=== PATIENT | female | born 1995 | race Caucasian/White ===

== ENCOUNTER 2017-09-11 07:07 | Emergency (ER) | payer MEDICAID ==
[~2017-09-11] VITALS: Ht 152.4 cm; Wt 77.7 kg
[~2017-09-11 07:07] MED LIST: PREN1CHW7 PO; ZANT150T2 PO
[2017-09-11 07:13] VITALS: BP 122/74; PULSE 108; RESP 18; TEMP 98.4; O2SAT 97
[2017-09-11] MEDS ORDERED: AMPI500C8 PO (07:41)
[2017-09-11] MEDS ORDERED: PENI500T PO (07:47)
--- NOTE | 2017-09-11 07:47 | PD ---
HPI Chief Complaint: Oral / Dental Pain or Problem Time Seen by Provider: 07:38 Travel History International Travel<30 days: No Contact w/Intl Traveler<30days: No Traveled to known affect area: No History of Present Illness HPI This is a 21-year-old female who presents to the emergency department with pain in her left jaw, constant, moderate severity making it difficult for her to sleep for 4 days. She has some bad teeth that she needs pulled with the dentist said because she's they won't do an extraction until after she delivers. She completed 1 course of antibiotics several weeks ago which helped her but her pain has come back. She is 35 weeks . [facility]LY [facility] Past Medical History Diminished Hearing: No ?: : 2 Para: 0 Miscarriage: 1 Social History Alcohol Use: No Tobacco Use: Yes (6 cigs a day) Substance Use: No Allergies-Medications (Allergen,Severity, Reaction): Coded Allergies: No Known Allergies (Unverified Adverse Reaction, Unknown, 09/11/17) Reported Meds & Prescriptions Reported Meds & Active Scripts Active Zantac (Ranitidine HCl) 150 Mg Tab 150 Mg PO BID Vitafol Gummies 3.33-0.333-34.8 mg ( Vit W/ Ferric Phospha) 1 Chw Chw 3 Tab PO DAILY Reported Ampicillin 500 Mg Cap 500 Mg PO QID Review of Systems Except as stated in HPI: all other systems reviewed are Neg Physical Exam Narrative GENERAL: Well-appearing, no acute distress, nontoxic SKIN: Warm and dry. HEAD: Atraumatic. Normocephalic. ENT: No nasal bleeding or discharge. Moist mucous membranes. Dental caries and poor dentition along the left mandibular molars. Neck: No cervical lymphadenopathy MUSCULOSKELETAL: No obvious deformities. Moving all extremities. NEUROLOGICAL: Awake and alert. No obvious cranial nerve deficits. Motor grossly within normal limits. Normal speech. PSYCHIATRIC: Appropriate mood and affect; insight and judgment normal. Data Data Last Documented VS Vital Signs Date Time Temp Pulse Resp B/P (MAP) Pulse Ox O2 Delivery O2 Flow Rate FiO2 09/11/17 07:13 98.4 108 18 122/74 (90) 97 MDM Medical Decision Making Medical Screen Exam Complete: Yes Emergency Medical Condition: Yes Differential Diagnosis Dental caries, dental abscess, neuropathic pain Narrative Course This is a 21-year-old female who presents to the emergency department with dental pain that's been going on for 4 days. She is 35 weeks . She has no signs of Eagle angina or a life-threatening infection. I think she is safe for oral antibiotic therapy and I advised her to use extra strength Tylenol for pain. Diagnosis Primary Impression: Pain, dental Patient Instructions: General Instructions Additional Instructions: If you develop fever, chills, difficulty swallowing or difficulty eating or drinking return to the emergency room. Take Tylenol for pain. Complete your course of antibiotics. Med/Other Pt SpecificInfo: Prescription(s) given Scripts Penicillin V Potassium (Penicillin V Potassium) 500 Mg Tab 500 MG PO Q8H for Infection for 7 Days, #21 TAB 0 Refills Prov: Lisha Myers MD 09/11/17 Disposition: 01 DISCHARGE HOME Condition: Stable Lisha Myers MD Sep 11, 2017 07:47
== END 2017-09-11 07:55 | disposition home or self-care (01) ==
LOC: PHED 07:07
DX: O99.613 Diseases of the digestive system complicating pregnancy, third trimester (principal); K08.9 Disorder of teeth and supporting structures, unspecified; Z3A.35 35 weeks gestation of pregnancy; F17.210 Nicotine dependence, cigarettes, uncomplicated; Z79.899 Other long term (current) drug therapy
CPT/HCPCS: 99283

== ENCOUNTER 2017-10-13 20:09 | Inpatient (IN) | payer MEDICAID ==
[2017-10-13] MEDS ORDERED: LACTATED RINGER'S 1000 ML INJ 1,000 ML IV PRN (21:30)
[2017-10-13] MEDS ORDERED: MINERAL OIL 10 ML VIAL TOPICAL PRN (21:30)
[2017-10-13] MEDS ORDERED: ONDANSETRON HCL 4 MG/2 ML VIAL IV PUSH PRN (21:30)
[2017-10-13] MEDS ORDERED: LIDOCAINE HCL 1% 50 ML VIAL INFIL PRN (21:30)
[2017-10-13] MEDS ORDERED: CITRIC ACID-SODIUM CITRATE LIQ 30 ML UDC PO SCH (21:30)
[2017-10-13] MEDS ORDERED: MISOPROSTOL 100 MCG TAB VAGINAL ONE (21:30)
[2017-10-13] MEDS ORDERED: SODIUM CHLORID 0.9% 500 ML INJ 500 ML IV PRN (21:30)
[2017-10-13] MEDS ORDERED: OXYTOCIN 30 UNITS-500ML PREMIX 500 ML IV ONE (21:30)
[2017-10-13] MEDS ORDERED: LIDOCAINE HCL 1% 50 ML VIAL I-DERMAL PRN (21:30)
[2017-10-13] MEDS ORDERED: ZOLPIDEM TARTRATE 5 MG TAB PO PRN (21:45)
--- NOTE | 2017-10-13 21:48 | HHI.HP ---
HPI Chief Complaint Here for induction Date Seen: Oct 13, 2017 Time Seen: 21:40 Travel History International Travel<30 Days: No Contact w/Intl Traveler<30Days: No Known Affected Area: No History of Present Illness HPI 21-year-old 4 para 1 AB 2 at 40 weeks 4 days gestation with an EDC of October 09 based on last menstrual period and confirmed by 11 week ultrasound. She comes today for elective induction of labor due to postterm . We reviewed the risks benefits and alternatives associated with induction and she consents to Cytotec followed by [facility] induction plan. History Past Medical History Medical History: Denies Significant Hx Past Surgical History Surgical History: No Previous Surgery Family History Family History: Negative Social History Alcohol Use: No Tobacco Use: No Substance Abuse: No Allergies-Medications (Allergen,Severity, Reaction): Coded Allergies: No Known Allergies (Unverified Adverse Reaction, Unknown, 09/11/17) Home Meds Active Scripts Ranitidine (Zantac) 150 Mg Tab, 150 MG PO BID for Reduce Stomach Acid, #60 TAB 11 Refills Prov:Lida Tam 03/22/17 Vit W/ Ferric Phospha (Vitafol Gummies 3.33-0.333-34.8 mg) 1 Chw Chw, 3 TAB PO DAILY, #90 BOTTLE 11 Refills Prov:Lida Tam 03/22/17 Review of Systems Except as stated in HPI: all other systems reviewed are Neg Physical Exam Narrative GENERAL: Well-nourished, well-developed patient. SKIN: Warm and dry. HEAD: Normocephalic and atraumatic. EYES: No scleral icterus. No injection or drainage. ENT: No nasal drainage noted. Mucous membranes pink. Airway patent. NECK: Supple, trachea midline. No JVD. CARDIOVASCULAR: Regular rate and rhythm without murmurs, gallops, or rubs. RESPIRATORY: Breath sounds equal bilaterally. No accessory muscle use. ABDOMEN/GI: Abdomen soft, non-tender, bowel sounds present, no rebound, no guarding Gravid to [-] weeks size Fundal Height: [-] GENITOURINARY: External Genitalia: intact and normal in appearance BUS glands: [-] Cervix: [-] Dilatation: [-2] Effacement: [50-] Station: [--2] Presentation: [Vertex-] Membranes: [intact] Uterine Contractions: [Rare mild-] FHT's: Category: [1-] Baseline: [-] Reactive: [-] Variability: [-] Decels: [-] EXTREMITIES: No cyanosis or edema. BACK: Nontender without obvious deformity. No CVA tenderness. NEUROLOGICAL: Awake and alert. Motor and sensory grossly within normal limits. Five out of 5 muscle strength in all muscle groups. Normal speech. Caprini VTE Risk Assessment Caprini VTE Risk Assessment: Mod/High Risk (score >= 2) Caprini Risk Assessment Model Point Value = 1 Point Value = 2 Point Value = 3 Point Value = 5 Age 41-60 Minor surgery BMI > 25 kg/m2 Swollen legs Varicose veins or History of unexplained or recurrent spontaneous Oral contraceptives or hormone replacement Sepsis (< 1 month) Serious lung disease, including pneumonia (< 1 month) Abnormal pulmonary function Acute myocardial infarction Congestive heart failure (< 1 month) History of inflammatory bowel disease Medical patient at bed rest Age 61-74 Arthroscopic surgery Major open surgery (> 45 min) Laparoscopic surgery (> 45 min) Malignancy Confined to bed (> 72 hours) Immobilizing plaster cast Central venous access Age >= 75 History of VTE Family history of VTE Factor V Leiden Prothrombin [id number] Lupus anticoagulant Anticardiolipin antibodies Elevated serum homocysteine Heparin-induced thrombocytopenia Other congenital or acquired thrombophilia Stroke (< 1 month) Elective arthroplasty Hip, pelvis, or leg fracture Acute spinal cord injury (< 1 month) Prophylaxis Regimen Total Risk Factor Score Risk Level Prophylaxis Regimen 0-1 Low Early ambulation 2 Moderate Order ONE of the following: *Sequential Compression Device (SCD) *Heparin 5000 units SQ BID 3-4 Higher Order ONE of the following medications: *Heparin 5000 units SQ TID *Enoxaparin/Lovenox 40 mg SQ daily (WT < 150 kg, CrCl > 30 mL/min) *Enoxaparin/Lovenox 30 mg SQ daily (WT < 150 kg, CrCl > 10-29 mL/min) *Enoxaparin/Lovenox 30 mg SQ BID (WT < 150 kg, CrCl > 30 mL/min) AND/OR *Sequential Compression Device (SCD) 5 or more Highest Order ONE of the following medications: *Heparin 5000 units SQ TID (Preferred with Epidurals) *Enoxaparin/Lovenox 40 mg SQ daily (WT < 150 kg, CrCl > 30 mL/min) *Enoxaparin/Lovenox 30 mg SQ daily (WT < 150 kg, CrCl > 10-29 mL/min) *Enoxaparin/Lovenox 30 mg SQ BID (WT < 150 kg, CrCl > 30 mL/min) AND *Sequential Compression Device (SCD) Data Data Vital Signs Reviewed: Yes Orders Orders Admit To Inpatient (10/13/17 ) Code Status (10/13/17 21:30) Vital Signs (Adult) .Per protocol (10/13/17 21:30) Heart (10/13/17 21:30) Amnioinfusion (10/13/17 21:30) Urinary Catheter Management .ONCE (10/13/17 21:30) Diet Liquid (10/14/17 Breakfast) Lactated Ringer's 1000 Ml Inj (Lr 1000 M (10/13/17 21:30) Lactated Ringer's 1000 Ml Inj (Lr 1000 M (10/13/17 21:30) Sodium Chlorid 0.9% 500 Ml Inj (Ns 500 M (10/13/17 21:30) Sodium Chlor 0.9% 1000 Ml Inj (Ns 1000 M (10/13/17 21:50) Lidocaine 1% Inj (50 Ml) (Xylocaine 1% I (10/13/17 21:30) Citric Acid-Sodium Citrate Liq (Bicitra (10/13/17 21:30) Ondansetron Inj (Zofran Inj) (10/13/17 21:30) Fentanyl Inj (Fentanyl Inj) (10/13/17 21:30) Fentanyl Inj (Fentanyl Inj) (10/13/17 21:30) Complete Blood Count With Diff (10/13/17 21:30) Hold Clot (10/13/17 21:30) Abo/Rh Blood Type (10/13/17 21:30) Urinalysis - C+S If Indicated (10/13/17 21:30) Drug Screen, Random Urine (10/13/17 21:30) Resp Oxygen Non Rebreathe Mask (10/13/17 ) ^ Epidural / Intrathecal Infus (10/13/17 21:30) Oxytocin 30 Units-500ml Premix (Pitocin (10/13/17 21:30) Lidocaine 1% Inj (50 Ml) (Xylocaine 1% I (10/13/17 21:30) Light Mineral Oil (Muri-Lube Oil) (10/13/17 21:30) Inpatient Certification (10/13/17 ) Specimen To Be Collected PRN (10/13/17 21:30) Specimen To Be Collected PRN (10/13/17 21:30) ^ Labor Induction (10/13/17 21:30) ^ Vaginal Lavage (10/13/17 21:30) Heart (10/13/17 21:30) Misoprostol (Cytotec) (10/13/17 21:30) Misoprostol (Cytotec) (10/14/17 01:30) Zolpidem (Ambien) (10/13/17 21:45) Group B Strep: Negative Assessment/Plan Assessment and Plan Assessment: 40 week 4 day gestation admitted for induction of labor. Rh- Plan: Cytotec 25 g vaginally every 3 hours when necessary followed by Pitocin if necessary. Ady Rowland MD Oct 13, 2017 21:47
[2017-10-13] MEDS ORDERED: SODIUM CHLOR 0.9% 1000 ML INJ 1,000 ML IV PRN (21:50)
[2017-10-13] MEDS: LACTATED RINGER'S 1000 ML INJ 1,000 ML IV SCH (21:58)
[2017-10-13 22:00] VITALS: RESP 20
[2017-10-13] MEDS ORDERED: PILL SPLITTER OTHER PRN (22:00)
[2017-10-13 22:18] LABS: BASOPHIL % 0.2 % (0.0-2.0); EOSINOPHIL # 0.1 TH/MM3 (0-0.4); EOSINOPHIL % 0.7 % (0.0-4.0); HEMATOCRIT 34.2 % (35.0-46.0); HEMO FLAGS DIFF FINAL; LYMPH % 15.1 % (9.0-44.0); LYMPHOCYTE # 1.9 TH/MM3 (1.0-4.8); MEAN CELL VOLUME 90.6 FL (80.0-100.0); MEAN CORPUSCULAR HEMOGLOBIN 30.9 PG (27.0-34.0); MEAN CORPUSCULAR HGB CONC 34.1 % (32.0-36.0); MONO % 6.4 % (0.0-8.0); NEUT % 77.6 % (16.0-70.0); PLATELET COUNT 207 TH/MM3 (150-450); RED BLOOD COUNT 3.78 MIL/MM3 (4.00-5.30); RED CELL DISTRIBUTION WIDTH 13.6 % (11.6-17.2); WHITE BLOOD COUNT 12.9 TH/MM3 (4.0-11.0)
[2017-10-13 22:23] LABS: BACTERIA, URINE OCC /hpf; BLOOD, URINE NEG (NEG); COMMENT (UR) CULT NOT INDICATED; CULTURE IF INDICATED CULT NOT INDICATED; GLUCOSE,URINE NEG (NEG); HYALINE CAST, URINE 1 /lpf (RARE); KETONE, URINE NEG (NEG); MUCUS URINE MANY /lpf (OCC); NITRITE,URINE NEG (NEG); PH, URINE 6.5 (5.0-8.5); SQUAMOUS EPITHELIAL CELL URINE 10 /hpf (0-5); URINE COLOR YELLOW (YELLW/STRAW)
[2017-10-14] VITALS (43 sets, daily range): BP systolic 101–135; BP diastolic 51–99; PULSE 67–148; RESP 17–20; TEMP 98.5–99
[2017-10-14] MEDS ORDERED: MISOPROSTOL 100 MCG TAB VAGINAL PRN (01:30)
[2017-10-14] MEDS ORDERED: fentaNYL 2MCG-BUPIV 0.125% INJ 100 ML ONE (03:15)
[2017-10-14] MEDS: LACTATED RINGER'S 1000 ML INJ 1,000 ML IV SCH (03:28)
[2017-10-14] MEDS ORDERED: NO SYSTEM NARCOTICS PRN (04:15)
[2017-10-14] MEDS ORDERED: DO NOT ADMINISTER ANTICOAGULANTS PRN (04:15)
[2017-10-14] MEDS ORDERED: ePHEDrine/NS 25 MG/5 ML SYR IV PUSH PRN (04:15)
[2017-10-14] MEDS ORDERED: fentaNYL 2MCG-BUPIV 0.125% 100 ML EPIDURAL SCH (04:15)
--- NOTE | 2017-10-14 06:55 | PD.LABORPN ---
Subjective Subjective The patient is comfortable with epidural. Objective Vital Signs Vital Signs Date Time Temp Pulse Resp B/P (MAP) Pulse Ox O2 Delivery O2 Flow Rate FiO2 10/14/17 06:31 79 112/80 (91) 10/14/17 06:21 98.7 10/14/17 06:20 18 10/14/17 06:15 124/79 (94) 10/14/17 06:15 91 10/14/17 06:00 130/72 (91) 10/14/17 05:45 84 10/14/17 05:45 129/74 (92) 10/14/17 05:30 123/82 (96) 10/14/17 05:16 99 10/14/17 05:16 111/85 (94) 10/14/17 05:01 132/81 (98) 10/14/17 04:45 113/71 (85) 10/14/17 04:45 83 10/14/17 04:15 73 106/52 (70) 10/14/17 04:00 111/58 (75) 10/14/17 03:59 72 113/66 (82) 10/14/17 03:57 116/51 (72) 10/14/17 03:45 126/99 (108) 10/14/17 03:43 125/94 (104) 10/14/17 03:36 100 132/80 (97) 10/14/17 03:36 20 10/14/17 03:31 135/69 (91) 10/14/17 03:30 20 10/14/17 03:29 100 134/89 (104) 10/14/17 03:27 18 10/14/17 02:04 18 10/14/17 02:03 82 128/80 (96) 10/14/17 00:30 98.5 10/14/17 00:25 18 10/14/17 00:24 76 126/71 (89) Objective Pelvic Exam: Cervix: [-] Dilatation: [9] Effacement: [100-] Station: [--2] Presentation: [Vertex] Membranes: [ruptured] Uterine Contractions: [Every 2-3-] FHT's: Category: [2-] Baseline: [-] Reactive: [-] Variability: [-Moderate] Decels: [-Nonrepetitive variable] Weeks Gestation: 40 Gest Age Assessed Date: Oct 14, 2017 Gest Age Assessed Time: 06:54 Pt started active labor?: Yes Active labor start date: Oct 14, 2017 Active labor start time: 02:52 Medical induction of labor?: Yes Medical induction start date: Oct 13, 2017 Medical induction start time: 22:00 Artificial rupture of membrane: No Assessment/Plan Assessment and Plan Assessment: 40-5/7 weeks gestation undergoing medical induction of labor for postterm , #2 progressing well in active labor Plan: Continuous epidural. Expect vaginal delivery. Ady Rowland MD Oct 14, 2017 06:55
[2017-10-14] MEDS ORDERED: OXYTOCIN 30 UNITS-500ML PREMIX 500 ML ONE (07:16)
--- NOTE | 2017-10-14 08:08 | PD.OB.DELI ---
Weeks gestation: 40 Gest age assessed date: Oct 14, 2017 Gest age assessed time: 06:54 Pt started active labor?: Yes Active labor start date: Oct 14, 2017 Active labor start time: 02:52 Medical induction of labor?: Yes Medical induction start date: Oct 13, 2017 Medical induction start time: 22:00 Artificial rupture of membrane: No Anesthesia: Epidural Episiotomy: None Vaginal Delivery: Normal Presentation: Occiput anterior Nuchal Cord: None Delayed cord clamping (45 sec): Yes : Female Delivery date: Oct 14, 2017 Delivery time: 07:52 One Minute : 9 Five Minute : 10 Placenta: Spontaneous delivery Laceration: No lacerations Estimated blood loss: 200 Additional Information The patient pushed effectively with just 2 contractions to deliver the OA vertex over an intact perineum. There was no delay for the shoulders which were delivered by maternal effort. The was passed to maternal abdomen where delayed cord clamping was accomplished. The placenta passed spontaneously. It was grossly normal and apparently intact. Hemostasis was excellent with IV Pitocin and massage. Quantitative blood loss was 200 cc. Ady Rowland MD Oct 14, 2017 08:08
[2017-10-14] MEDS ORDERED: oxyCODONE/ACETAMINOPHEN 5 MG/325 MG TAB PO PRN (08:15)
[2017-10-14] MEDS ORDERED: BENZOCAINE 20% TOPICAL SPRAY 60 ML CAN TOPICAL PRN (08:15)
[2017-10-14] MEDS ORDERED: DOCUSATE SODIUM 50 MG/SENNA 8.6 MG TAB PO PRN (08:15)
[2017-10-14] MEDS ORDERED: ALUMINUM/MAGNESIUM/SIMETH 30 ML CUP PO PRN (08:15)
[2017-10-14] MEDS ORDERED: ONDANSETRON ODT 4 MG TAB PO PRN (08:15)
[2017-10-14] MEDS ORDERED: SODIUM CHLORIDE 0.9% FLUSH 10 ML FLUSH IV FLUSH PRN (08:15)
[2017-10-14] MEDS ORDERED: OXYTOCIN 30 UNITS-500ML PREMIX 500 ML IV SCH (08:15)
[2017-10-14] MEDS ORDERED: ZOLPIDEM TARTRATE 5 MG TAB PO PRN (08:15)
[2017-10-14] MEDS ORDERED: SODIUM CHLORIDE 0.9% FLUSH 10 ML FLUSH IV FLUSH SCH (09:00)
[2017-10-14] MEDS ORDERED: DIPHTH/TETANUS/ACEL PERTUSSIS (BOOSTER) 0.5 ML VIAL/PFS IM ONE (16:00)
[2017-10-14] MEDS ORDERED: MEASLES, MUMPS, RUBELLA VACCINE 0.5 ML VIAL SQ ONE (16:00)
[2017-10-14] MEDS: IBUPROFEN 800 MG TAB PO PRN (17:52)
[2017-10-14] MEDS: WITCH HAZEL 50%/GLYCERIN 12.5% 40 PAD JAR TOPICAL PRN (17:52)
[2017-10-14] MEDS: ACETAMINOPHEN 325 MG TAB PO PRN (17:52)
[2017-10-15] MEDS: ACETAMINOPHEN 325 MG TAB PO PRN ×2 (04:15→16:30)
[2017-10-15] MEDS: IBUPROFEN 800 MG TAB PO PRN ×2 (04:15→16:30)
--- NOTE | 2017-10-15 07:30 | HHI.OB ---
Subjective Post Day: 1 Remarks Patient is a 21-year-old delivered at 40 weeks and 5 days. Patient is day 1 after NVD. Patient's pain is well-controlled. Patient reports eating and drinking without any nausea or vomiting. Patient reports minimal bleeding. Patient has passed gas and bowel movements. Patient is walking without lower extremity pain or shortness of breath. Patient reports desire for contraception through her outpatient provider and breast-feeding. Patient had difficulty voiding yesterday, thus a Villafuerte was placed around 2 PM yesterday. Discussed plan to remove Villafuerte this afternoon. Patient expressed desire to be discharged today. (Tarun Vasquez MD R2) Objective Vitals/I&O Vital Signs Date Time Temp Pulse Resp B/P (MAP) Pulse Ox O2 Delivery O2 Flow Rate FiO2 10/14/17 19:50 98.5 10/14/17 19:50 88 17 101/62 (75) 10/14/17 10:14 98.9 10/14/17 10:14 67 18 135/68 (90) 10/14/17 08:30 75 109/63 (78) 10/14/17 08:16 84 115/67 (83) 10/14/17 08:15 99.0 20 10/14/17 08:01 148 131/66 (87) 10/14/17 08:00 77 10/14/17 07:55 85 10/14/17 07:55 85 10/14/17 07:50 85 10/14/17 07:46 138 123/89 (100) 10/14/17 07:45 87 10/14/17 07:40 102 10/14/17 07:30 90 121/97 (105) Objective Remarks GENERAL: Well-nourished, well-developed patient. CARDIOVASCULAR: Regular rate and rhythm without murmurs, gallops, or rubs. RESPIRATORY: Breath sounds equal bilaterally. No accessory muscle use. ABDOMEN/GI: Abdomen soft, non-tender. Fundus: Firm, non-tender at umbilicus. GENITOURINARY: Light to moderate bleeding. Villafuerte in place draining clear light yellow urine. EXTREMITIES: No cyanosis or edema, non-tender, without signs of DVT. Medications and IVs Current Medications Medications (Trade) Dose Ordered Sig/Scar Route Start Time Stop Time Status Last Admin (Pill Splitter) 1 ea UNSCH PRN OTHER 12/8/17 22:00 10/14/17 02:01 (NS Flush) 2 ml BID IV FLUSH 10/14/17 09:00 (NS Flush) 2 ml UNSCH PRN IV FLUSH 10/14/17 08:15 (Tylenol) 650 mg Q4H PRN PO 10/14/17 08:15 10/15/17 04:15 (Motrin) 800 mg Q8H PRN PO 10/14/17 08:15 10/15/17 04:15 (Percocet 5-325 Mg) 2 tab Q4H PRN PO 10/14/17 08:15 (Americaine 20% Top Spr) 1 spray Q4H PRN TOPICAL 10/14/17 08:15 10/14/17 17:53 (Tucks Pads) 1 applic QID PRN TOPICAL 10/14/17 08:15 10/14/17 17:52 (Elisa-Colace) 2 tab Q12H PRN PO 10/14/17 08:15 10/14/17 17:52 (Ambien) 5 mg HS PRN PO 10/14/17 08:15 (Mag-Al Plus Susp Liq) 15 ml Q8H PRN PO 10/14/17 08:15 (Zofran Odt) 4 mg Q6H PRN PO 10/14/17 08:15 (Flu (Quadrivalent) Vaccine Inj) 0.5 ml ONCE ONCE IM 10/15/17 10:00 10/15/17 10:01 10/14/17 20:16 (Tarun Vasquez MD R2) Assessment/Plan Problem List: (1) NVD (normal vaginal delivery) ICD Codes: O80 - Encounter for full-term uncomplicated delivery Assessment and Plan Patient is a 21-year-old delivered at 40 weeks and 5 days admitted for induction of labor. Rh-. Patient is day 1 after NVD. Patient's pain is well-controlled. Patient reports desire for contraception through her outpatient provider and breast-feeding. Patient was counseled to do 6 weeks of pelvic rest. Patient was counseled to follow up in 6 weeks. Patient requested follow-up and contraception. 1. Routine care --AF VSS --Continue routine care --Motrin and Percocet when necessary for pain --Encourage OOB --Pelvic rest for 6 weeks will need follow-up appointment at that time. --Contraception: Through her outpatient provider --Anticipate discharge today 2. Urinary retention - Patient had difficulty voiding yesterday, thus a Villafuerte was placed around 2 PM yesterday. Discussed plan to remove Villafuerte this afternoon. Patient expressed desire to be discharged today. -Plan to discharge today if patient is able to void after Villafuerte catheter is removed. s/d/w Dr. Soto Discharge Planning Anticipate discharge today pending void without Villafuerte. (Tarun Vasquez MD R2) Attending Attestation The patient was personally seen and evaluated by me and I performed all polk portions of the decision making. (Lida Soto MD) Tarun Vasquez MD R2 Oct 15, 2017 07:30 Lida Soto MD Oct 15, 2017 08:33
[2017-10-15] MEDS ORDERED: IBUP1TAB7 PO (07:34)
--- NOTE | 2017-10-15 07:35 | HHI.DCPOC ---
Discharge Care Plan Diagnosis: (1) NVD (normal vaginal delivery) Report Symptoms to Your Doctor -Temperature above 100.5 degrees -Redness, of incision or excessive or foul smelling drainage -Unusual pain or calf pain -Increased vaginal bleeding -Painful or difficulty urinating -Feelings of extreme sadness or anxiety after 2 weeks Goals to Promote Your Health * To prevent worsening of your condition and complications, please follow-up with your doctor within 6 weeks. * To maintain your health at the optimal level, please follow medical recommendations. Directions to Meet Your Goals Take your medications as prescribed Follow your dietary instruction Follow activity as directed Ensure plenty of rest for recovery Drink fluids for hydration Keep your appointments as scheduled Take your immunizations and boosters as scheduled If your symptoms worsen call your PCP, if no PCP go to Urgent Care Center or Emergency Room Smoking is Dangerous to Your Health. Avoid second hand smoke Call the 24-hour crisis hotline for domestic abuse at Tarun Vasquez MD R2 Oct 15, 2017 07:35
[2017-10-15 08:15] VITALS: BP 97/72; PULSE 68; RESP 16; TEMP 97.7; O2SAT 97
[2017-10-15] MEDS ORDERED: INFLUENZA VIRUS VACCINE (QUADRIVALENT) 0.5 ML SYR IM ONE (10:00)
[2017-10-15 20:00] VITALS: BP 117/73; PULSE 74; RESP 16; TEMP 98
--- NOTE | 2017-10-16 07:18 | HHI.OB ---
Subjective Post Day: 2 Remarks Ms Miller had no acute events overnight. Pain is controlled with ibuprofen, ambulating, voiding, stooling, and taking PO. Lochia is less than a periods and reducing. Bottle feeding. Denies CP, SOB, N/V/D, and DVT pain. Plans to discharge today. (Filiberto Mccann MD R1) Remarks Patient seen and evaluated with resident under direct supervision, agree with assessment and plan. (Ady Rowland MD) Objective Vitals/I&O Vital Signs Date Time Temp Pulse Resp B/P (MAP) Pulse Ox O2 Delivery O2 Flow Rate FiO2 10/15/17 20:00 74 16 117/73 (88) 10/15/17 20:00 98.0 10/15/17 08:15 97.7 68 16 97/72 (80) 97 Objective Remarks GENERAL: Well-nourished, well-developed patient lying in bed in NAD. CARDIOVASCULAR: Regular rate and rhythm without murmur, gallop, or rub. RESPIRATORY: Breath sounds equal bilaterally in all lung bran. No accessory muscle use. ABDOMEN/GI: Abdomen soft, non-tender. Appropriately distended. Normal BS. Fundus: Firm, non-tender below umbilicus. GENITOURINARY: Light to moderate bleeding. Urinating without do today. EXTREMITIES: No cyanosis or edema, non-tender, without signs of DVT. Medications and IVs Current Medications Medications (Trade) Dose Ordered Sig/Scar Route Start Time Stop Time Status Last Admin (Pill Splitter) 1 ea UNSCH PRN OTHER 10/13/17 22:00 10/14/17 02:01 (NS Flush) 2 ml BID IV FLUSH 10/14/17 09:00 (NS Flush) 2 ml UNSCH PRN IV FLUSH 10/14/17 08:15 (Tylenol) 650 mg Q4H PRN PO 10/14/17 08:15 10/15/17 16:30 (Motrin) 800 mg Q8H PRN PO 10/14/17 08:15 10/15/17 16:30 (Percocet 5-325 Mg) 2 tab Q4H PRN PO 10/14/17 08:15 (Americaine 20% Top Spr) 1 spray Q4H PRN TOPICAL 10/14/17 08:15 10/14/17 17:53 (Tucks Pads) 1 applic QID PRN TOPICAL 10/14/17 08:15 10/14/17 17:52 (Elisa-Colace) 2 tab Q12H PRN PO 10/14/17 08:15 10/14/17 17:52 (Ambien) 5 mg HS PRN PO 10/14/17 08:15 (Mag-Al Plus Susp Liq) 15 ml Q8H PRN PO 10/14/17 08:15 (Zofran Odt) 4 mg Q6H PRN PO 10/14/17 08:15 (Filiberto Mccann MD R1) Assessment/Plan Problem List: (1) NVD (normal vaginal delivery) ICD Codes: O80 - Encounter for full-term uncomplicated delivery Assessment and Plan 21YO PPD#2 after w/IOL delivered at 40/5 weeks. Pain controlled, ambulating, taking PO, voiding and stooling as appropriate. Do has been withdrawn and pt is able to void spontaneously. Bottle feeding. AFVSS. Physical exam benign. Denies CP, SOB, N/V/D, and DVT pain. 1. Continue routine care --Motrin when necessary for pain --Encouraged OOB --Pelvic rest for 6 weeks will need follow-up appointment at that time --Contraception: Through her outpatient provider --Anticipate discharge today 2. Urinary retention - Do removed yesterday with spontaneous voiding noted since then Pt discussed with Dr Rowland and Eko Discharge Planning Anticipate discharge today pending void without Do. (Filiberto Mccann MD R1) Filiberto Mccann MD R1 Oct 16, 2017 07:18 Ady Rowland MD Oct 16, 2017 09:04
[2017-10-16 07:40] VITALS: BP 123/68; PULSE 72; RESP 16; TEMP 98.6
[2017-10-16 07:47] VITALS: O2SAT 100
[2017-10-16] MEDS: WITCH HAZEL 50%/GLYCERIN 12.5% 40 PAD JAR TOPICAL PRN (09:41)
== END 2017-10-16 10:14 | disposition home or self-care (01) | DRG 774 ==
LOC: H2EA 20:09 → H1EA 10-14 10:03
PROVIDERS: ADMIT Obstetrics & Gynecology; ATTEND Obstetrics & Gynecology
PROC: 3E0P3VZ Introduction of Hormone into Female Reproductive, Percutaneous Approach (ICD-10-PCS; 2017-10-13)
PROC: 3E0P7VZ Introduction of Hormone into Female Reproductive, Via Natural or Artificial Opening (ICD-10-PCS; 2017-10-13)
PROC: 10E0XZZ Delivery of Products of Conception, External Approach (ICD-10-PCS; principal; 2017-10-14)
PROC: 0T9B70Z Drainage of Bladder with Drainage Device, Via Natural or Artificial Opening (ICD-10-PCS; 2017-10-14)
DX: O48.0 Post-term pregnancy (principal); O90.89 Other complications of the puerperium, not elsewhere classified; R33.9 Retention of urine, unspecified; Z37.0 Single live birth; Z3A.40 40 weeks gestation of pregnancy; Z23 Encounter for immunization
CPT/HCPCS: 59025; 80307; 81001; 85025; 90686; 90715; J2590; J7120; Q2038

== ENCOUNTER 2018-02-25 07:33 | Emergency (ER) | payer SELFPAY ==
[~2018-02-25] VITALS: Ht 152.4 cm; Wt 68.0 kg
[~2018-02-25 07:33] MED LIST changes: +IBUP1TAB7 PO; +MEDR150I IM
[2018-02-25 07:36] VITALS: BP 120/72; PULSE 92; RESP 16; TEMP 98.4; O2SAT 98
[2018-02-25] MEDS ORDERED: TRAM50 PO (07:58)
[2018-02-25] MEDS ORDERED: CEPH-460 PO (07:58)
--- NOTE | 2018-02-25 07:58 | PD ---
HPI Chief Complaint: Facial Pain or Swelling Time Seen by Provider: 07:54 Travel History International Travel<30 days: No Contact w/Intl Traveler<30days: No Traveled to known affect area: No History of Present Illness HPI Patient presents with complaints of dental pain and right facial swelling since this morning. She is a smoker. Denies nausea vomiting diarrhea or fever. There are 2 infants in the room but she denies breast-feeding. Denies any trauma. PFSH Past Medical History Medical History: Denies Significant Hx Diminished Hearing: No Influenza Vaccination: Yes ?: Not LMP: 1 WEEK : 3 Para: 2 Miscarriage: 1 Past Surgical History Surgical History: No Previous Surgery Social History Alcohol Use: No Tobacco Use: Yes (1/2ppd) Substance Use: No Allergies-Medications (Allergen,Severity, Reaction): Coded Allergies: No Known Allergies (Unverified Allergy, Unknown, 02/25/18) Reported Meds & Prescriptions Reported Meds & Active Scripts Active No Active Prescriptions or Reported Medications Review of Systems General / Constitutional: No: Fever Eyes: No: Visual changes HENT: Positive: Dental Difficulties, No: Headaches Cardiovascular: No: Chest Pain or Discomfort Respiratory: No: Shortness of Breath Gastrointestinal: No: Abdominal Pain Genitourinary: No: Dysuria Musculoskeletal: No: Pain Skin: No Rash Neurologic: No: Weakness Psychiatric: No: Depression Endocrine: No: Polydipsia Hematologic/Lymphatic: No: Easy Bruising Physical Exam Narrative GENERAL: Well-nourished, well-developed patient. SKIN: Focused skin assessment warm/dry. HEAD: Normocephalic. EYES: No scleral icterus. No injection or drainage. Oral mucosa pink moist and healthy in appearance poor dentition throughout. There is some increased swelling and erythema in the right upper region NECK: Supple, trachea midline. No JVD or lymphadenopathy. CARDIOVASCULAR: Regular rate and rhythm without murmurs, gallops, or rubs. RESPIRATORY: Breath sounds equal bilaterally. No accessory muscle use. GASTROINTESTINAL: Abdomen soft, non-tender, nondistended. MUSCULOSKELETAL: No cyanosis, or edema. BACK: Nontender without obvious deformity. No CVA tenderness. Data Data Last Documented VS Vital Signs Date Time Temp Pulse Resp B/P (MAP) Pulse Ox O2 Delivery O2 Flow Rate FiO2 02/25/18 07:36 98.4 92 16 120/72 (88) 98 MDM Medical Decision Making Medical Screen Exam Complete: Yes Emergency Medical Condition: Yes Differential Diagnosis Dentalgia, tobacco abuse, cellulitis, tooth abscess Narrative Course Assessment plan discussed the patient and at bedside Diagnosis Primary Impression: Dentalgia Patient Instructions: General Instructions Additional Instructions: Rest and fluids. Follow-up with her dentist. Return to emergency room with any onset of new symptoms. Med/Other Pt SpecificInfo: Prescription(s) given Scripts Tramadol (Ultram) 50 Mg Tab 50 MG PO Q4H Y for PAIN, #10 TAB 0 Refills Prov: Arash Guy MD 02/25/18 Cephalexin (Keflex) 500 Mg Cap 500 MG PO Q12H for Infection for 7 Days, #14 CAP 0 Refills Prov: Arash Guy MD 02/25/18 Disposition: 01 DISCHARGE HOME Condition: Good Arash Guy MD Feb 25, 2018 07:58
== END 2018-02-25 08:29 | disposition home or self-care (01) ==
LOC: PHED 07:33
DX: K08.89 Other specified disorders of teeth and supporting structures (principal); F17.200 Nicotine dependence, unspecified, uncomplicated
CPT/HCPCS: 99283